=== PATIENT | female | born 2000 | race African-American/Black ===

== ENCOUNTER 2025-04-21 14:52 | Emergency (ER) | payer OTHER ==
[~2025-04-21] VITALS: Ht 167.6 cm; Wt 67.0 kg
[2025-04-21 15:10] VITALS: TEMP 36.7; O2SAT 100
[2025-04-21 15:55] VITALS: BP 105/57; PULSE 66; RESP 16; O2SAT 100
== END 2025-04-21 15:58 | disposition home or self-care (01) ==
LOC: ER 14:52
DX: S09.90XA Unspecified injury of head, initial encounter (principal); X58.XXXA Exposure to other specified factors, initial encounter; Y93.89 Activity, other specified; Y92.89 Other specified places as the place of occurrence of the external cause; Y99.8 Other external cause status
CPT/HCPCS: 99281; 99282